=== PATIENT | male | born 1990 | race Two or more races ===

== ENCOUNTER → 2016-11-15 | Outpatient (CLI) | payer OTHER ==
--- NOTE | ~2016-11-15 | MR104 ---
[facility] A Service of [facility] RADIOLOGY TEXT RESULTS PATIENT: KRYSTAL RATLIFF LOCATION: [facility] : 91 UNIT #: [id number] AGE: [address]: ROSY ANGULO MD SEX: M ORDER DR: [id number] [facility] [address] [place], [place] [address] [id number] O MR#: [id number] #: [id number] NAME: KRYSTAL RATLIFF : 1990 SEX: M STUDY DATE/TIME: 11/15/2016 18:29 UNIT: [facility] ROOM: STUDY DESCRIPTION: MR Knee Wo Contrast Rt Attending Physician: Rosy Angulo Referring Physician: Rosy Angulo Ordering Physician: Scotty Angulo M.D. Primary Care Physician: Rosy Angulo [facility] REPORT This report is preliminary unless electronic signature is present. EXAM MRI right knee 11/15/2016 COMPARISON Right knee radiographs 11/10/2016. HISTORY Order states 26-year-old male with right knee pain after twisting his knee. Initial x-rays negative. Evaluate for meniscal tear. History sheet states knee pain since July 2016. Medial pain and swelling. Knee gave out in July and then 3 weeks ago. No improvement. No specific injury. FINDINGS There is a trace effusion without popliteal cyst. Patellofemoral alignment and articular cartilage are normal. Quadriceps and patellar tendons are intact. There is a chronic-appearing complete ACL tear with evidence of ACL-related laxity (PCL buckling and anterior tibial translation). PCL is intact. The lateral meniscus, lateral collateral ligament complex, and popliteus tendon are intact. Articular cartilage of the lateral compartment is normal. There is a longitudinal complex tear of the medial meniscus with a vertical superior articular surface tear in the periphery of the posterior body and horn communicating with a longitudinal horizontal tear to the mid body. There may be a small horizontal tear in the anterior body. There is no displaced meniscal flap or fragment. There is low signal thickening [facility] A Service [facility] RADIOLOGY TEXT RESULTS PATIENT: KRYSTAL RATLIFF LOCATION: [facility] : 91 UNIT #: [id number] AGE: [address]: ROSY ANGULO MD SEX: M ORDER DR: of the MCL suggestive of sequela of old MCL injury. There is no marrow lesion, fracture, bone contusion, or loose body. IMPRESSION 1. Chronic, complete ACL tear. 2. Longitudinal complex medial meniscus tear without a displaced flap or fragment detailed above. 3. Chronic MCL thickening compatible with sequela of old MCL injury. 4. Trace effusion. Dictated by... Gina Cartagena M.D. THIS IS AN ELECTRONICALLY VERIFIED REPORT Gina Cartagena M.D. at 11/16/2016 11:24 AM TATUM/kristyn TD: 11/16/2016 10:33 JOB #: [id number] [facility] REPORT Page 1 of 1 COPY
== END | disposition home or self-care (01) ==
LOC: CMRI 17:49
DX: M25.561 Pain in right knee (principal); M23.8X1 Other internal derangements of right knee; M23.203 Derangement of unspecified medial meniscus due to old tear or injury, right knee
CPT/HCPCS: 73721